=== PATIENT | female | born 1950 | race Caucasian/White ===

== ENCOUNTER → 2016-12-06 | Day surgery (SDC) | payer OTHER ==
[~2016-12-06] VITALS: Ht 165.1 cm; Wt 89.2 kg
[2016-12-06] VITALS (9 sets, daily range): BP systolic 118–141; BP diastolic 75–90; PULSE 51–58; RESP 14–18; O2SAT 96–98
[~2016-12-06] MED LIST: 0.9% Sodium Chloride 1,000 ML IV PRN; 0.9% Sodium Chloride 1,000 ML IV SCH; 0.9% Sodium Chloride 250 ML IV PRN; ASPI-973 PO; ATEN25TA PO; ATOR20TA65 PO; Atropine 1 mg/10 mL (Code) Syringe IVPUSH PRN; CALC-932 PO; CALC215T4 PO; CHOL10008 PO; DETROL LA4 M1 PO; HYDROcodone-APAP 5-325 mg Tablet PO PRN; Heparin 1,000 Units/500 mL NS Premix IV ONE; Heparin 10,000 Unit/1,000 mL NS Premix IV ONE; LEVO50TA6 PO; NITR0.4T SL; Ondansetron 2 mg/mL 2 mL Inj IVPUSH PRN; fentaNYL-PF 50 mCg/mL 2 mL Inj ONE
--- NOTE | 2016-12-06 08:25 | NUR ---
Patient admitted for heart cath with Dr Chou.
--- NOTE | 2016-12-06 10:57 | PCM.CVCATH ---
Cardiac Cath Report Date of Service Dec 06, 2016 Primary Indication Abnormal myocardial stress test showing apical ischemia. Procedure 1. Left heart catheterization 2. Selective coronary angiogram 3. Left ventricular angiogram 4. Right femoral angiogram Vascular Access Right common femoral artery Procedure Details The patient was brought into the catheterization laboratory. The patient was nothing by mouth since midnight. The patient was prepped and sterilized in the appropriate fashion. Local anesthetic was given to the right groin region with lidocaine 1%. A percutaneous stick to the right groin region with an 18-gauge Seldinger needle was attempted. A 6 Ethiopian sheath was inserted into the right femoral artery. A 6 Ethiopian FL 4 diagnostic catheter was advanced and engaged into the left main. The left coronary angiography was performed in multiple views. The catheter was exchanged over the wire for a 6 Ethiopian FR4 diagnostic catheter. The catheter was engaged in the right coronary ostium and the right coronary angiography was performed in multiple views. The catheter was removed over the wire and exchanged for 6 Ethiopian angle pigtail catheter. LV hemodynamics were recorded. Left ventricular angiography was performed at 12 mL /s for total 38 mL of contrast. LV pullback was performed. All catheters were removed. The right femoral angiogram was performed to evaluate for closure device. Hemostasis was obtained with Star close. The patient was transferred back to special observation unit for post procedural monitoring. There were no immediate complications. Total fluoroscopy time: 2.2 minutes Total fluoroscopy dosage: 559 mGy Estimated blood loss: 10 mL Findings 1. Hemodynamics: The left ventricular systolic pressure was estimated at 150 mmHg and the left ventricular end-diastolic pressure was estimated at 24 mmHg. There is no significant gradient during pullback. Aortic systemic pressure was 136/74 mmHg. 2. Selective coronary angiography: A. Left main: This artery has no evidence of significant disease. It bifurcates into the left anterior descending and left circumflex arteries. B. Left anterior descending artery: There is no evidence of significant disease. C. Left circumflex artery: There is no evidence of significant disease. D. Right coronary artery: This is a dominant vessel and has no evidence of significant disease. The posterior descending artery is normal angiographically. 3. Left ventricular angiogram: The ejection fraction is around 66 %. There is no appreciable LV wall motion abnormalities. 4. Right femoral angiogram: There is no evidence of significant disease. Summary 1. Normal coronaries angiographically. 2. Left ventricular filling pressures elevated at 24 mmHg. 3. Normal LV ejection fraction without focal wall motion abnormalities. Recommendations Patient chest pain is unlikely cardiac in nature. She should continue with risk factor modification. Continue with her current medications. copies to: America Steele PA-C, Oscar J MD Dec 06, 2016 10:57
--- NOTE | 2016-12-06 13:44 | NUR ---
Discharge instructions reviewed with patient.She has been ambulatory x 1 hour. Voided since off bedrest. right groin remains stable.
== END | disposition home or self-care (01) ==
LOC: SOUO 01:03
PROVIDERS: ATTEND Internal Medicine Cardiovascular Disease
DX: R94.39 Abnormal result of other cardiovascular function study (principal); R07.9 Chest pain, unspecified; I10 Essential (primary) hypertension; E78.00 Pure hypercholesterolemia, unspecified; M79.602 Pain in left arm
CPT/HCPCS: 93005; 93458; 99152; 99153; C1760; C1769; J1200; J1644; J2060; J2250; J3010; Q9967